=== PATIENT | female | born 2000 | race Two or more races ===

== ENCOUNTER 2023-03-26 20:15 | Emergency (ER) | payer MEDICAID, OTHER ==
[~2023-03-26] VITALS: Ht 167.6 cm; Wt 150.0 kg
[2023-03-26 20:47] LABS: Basophils # (auto) 0.1 10 ^3/uL (0-0.2); Basophils % (auto) 0.8 % (0.0-2.0); Eosinophils # (auto) 0.2 10 ^3/uL (0-0.8); Eosinophils % (auto) 1.9 % (0.0-7.0); Hematocrit 32.3 % (36.0-46.0); Hemoglobin 10.2 g/dL (12.2-16.2); Lymphocytes # (auto) 2.3 10 ^3/uL (0.4-5.4); Lymphocytes % (auto) 29.2 % (10.0-50.0); Mean Corpuscular Hemoglobin 25.2 pg (28.0-32.0); Mean Corpuscular Hgb Conc. 31.8 g/dL (32.0-36.0); Mean Corpuscular Volume 79.3 fL (80.0-100.0); Monocytes # (auto) 0.6 10 ^3/uL (0-1.3); Monocytes % (auto) 7.8 % (0.0-12.0); Neutrophils # (auto) 4.8 10 ^3/uL (1.6-8.6); Neutrophils % (auto) 60.3 % (37.0-80.0); Nucleated Red Blood Cells % 0.1 %; Red Blood Cells 4.07 10^6/uL (4.0-5.20); Red Cell Distribution Width 16.1 % (11.8-14.3)
[2023-03-26 21:04] LABS: Albumin 3.9 g/dL (3.4-5.0); Calcium 8.5 mg/dL (8.5-10.1); Magnesium 2.6 mg/dL (1.6-2.6); Potassium 4.4 mmol/L (3.5-5.1)
[2023-03-26 21:08] LABS: BUN/Creatinine Ratio 21.5 (10.0-20.0); Bilirubin, Total 0.2 mg/dL (0.2-1.0); Total Protein 7.4 g/dL (6.4-8.2)
[2023-03-26 21:16] LABS: INR 1.1 (0.9-1.15); Partial Thromboplastin Time 26.7 SEC (24.5-34.5)
[2023-03-26 21:53] VITALS: O2SAT 97
[2023-03-26] MEDS ORDERED: SODIUM CHLORIDE 0.9% 1,000 ML IV ONE (22:00)
[2023-03-26] MEDS ORDERED: IOHEXOL 350 MG/ML 100ML IJ ONE (22:12)
[2023-03-27 00:57] VITALS: BP 134/72; PULSE 54; RESP 17; TEMP 98.2; O2SAT 97
== END 2023-03-27 01:00 | disposition home or self-care (01) ==
LOC: ER 20:15
DX: R07.89 Other chest pain (principal); F12.90 Cannabis use, unspecified, uncomplicated; R10.2 Pelvic and perineal pain; Z98.890 Other specified postprocedural states
CPT/HCPCS: 36415; 71045; 71275; 80053; 83735; 83880; 84484; 84702; 85025; 85610; 85730; 93005; 96360; 99285; J7030; Q9967

== ENCOUNTER 2025-08-11 18:06 | Emergency (ER) | payer MEDICAID, OTHER ==
[~2025-08-11] VITALS: Ht 167.6 cm; Wt 72.9 kg
[2025-08-11] MEDS ORDERED: IBUP-1456 PO (18:43)
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
[2025-08-11] MEDS: KETOROLAC TROMETH 60MG/2ML VIAL IM ONE (18:55)
[2025-08-11 19:10] VITALS: BP 148/80; PULSE 60; RESP 20; TEMP 97.8; O2SAT 100
== END 2025-08-11 19:15 | disposition home or self-care (01) ==
LOC: ER 18:06
DX: S16.1XXA Strain of muscle, fascia and tendon at neck level, initial encounter (principal); S20.219A Contusion of unspecified front wall of thorax, initial encounter; F12.90 Cannabis use, unspecified, uncomplicated; Z79.899 Other long term (current) drug therapy; V43.52XA Car driver injured in collision with other type car in traffic accident, initial encounter; Y93.89 Activity, other specified; Y92.488 Other paved roadways as the place of occurrence of the external cause; Y99.8 Other external cause status
CPT/HCPCS: 96372; 99283; J1885